=== PATIENT | female | born 1995 | race Caucasian/White ===

== ENCOUNTER → 2022-03-28 | Outpatient (CLI) ==
[~2022-03-28] MED LIST: CEPH-507 PO
== END ==
LOC: LABNPT 16:43
PROVIDERS: ATTEND Nurse Practitioner Women's Health
DX: Z34.02 Encounter for supervision of normal first pregnancy, second trimester (principal); Z3A.00 Weeks of gestation of pregnancy not specified
CPT/HCPCS: 82105

== ENCOUNTER → 2022-04-25 | Outpatient (CLI) | payer BC ==
--- NOTE | 2022-04-25 15:51 | Diagnostic Imaging Report ---
INDICATION: survey. TECHNIQUE: Multiple real-time grayscale images were obtained over the gravid uterus. COMPARISON: None. FINDINGS: There is a single live fetus in a breech presentation. heart rate was recorded at 153 BPM. Placenta is anterior and appears to be in a low-lying position. Amniotic fluid volume is normal. Cervical length is 4.4 cm. survey shows kidneys, bladder and stomach to be unremarkable. brain is unremarkable. There is a four-chamber heart. There is a three-vessel cord with normal insertion. spine is limited in evaluation. Biometrical measurements are as follows: Biparietal 5.01 cm, age 21 weeks 2 days. Head circumference 18.95 cm, age 21 weeks 2 days. Abdominal circumference 16.12 cm, age 21 weeks 2 days. Femur length 3.53 cm, age 21 weeks 2 days. Sonographic estimate age: 21 weeks 2 days. Sonographic estimated date of delivery: 09/03/2022. Estimated Weight: 406 gm (+/- 59 gm). LMP percentile: 39%. heart rate: 153 beats per minute. number: 1 of 1. IMPRESSION: Single live IUP of 21 weeks 2 days gestational age. Estimated date of confinement sonographically is 09/03/2022. The survey does show a low-lying anterior placenta. No gross abnormalities were visualized, although spine was somewhat limited in evaluation due to position. Follow-up in the later second or early third trimester could be performed. Dictated by: Dictated on workstation # [id number]
== END ==
LOC: RAD 14:30
PROVIDERS: ATTEND Nurse Practitioner Women's Health
DX: Z34.02 Encounter for supervision of normal first pregnancy, second trimester (principal); Z3A.21 21 weeks gestation of pregnancy
CPT/HCPCS: 76805

== ENCOUNTER 2022-08-31 02:08 | Inpatient (IN) | payer BC ==
[~2022-08-31] VITALS: Ht 168 cm; Wt 71.6 kg
[2022-08-31] VITALS (39 sets, daily range): BP systolic 90–123; BP diastolic 52–80
[2022-08-31 02:41] LABS: BILIRUBIN,URINE NEGATIVE (NEGATIVE); CLARITY,URINE CLEAR; COLOR,URINE YELLOW; GLUCOSE, URINE (UA) NEGATIVE (NEGATIVE); KETONES,URINE NEGATIVE (NEGATIVE); LEUKOCYTE ESTERASE ,URINE NEGATIVE (NEGATIVE); NITRITE,URINE NEGATIVE (NEGATIVE); PH,URINE 6.5 (5-9); PROTEIN,URINE NEGATIVE (NEGATIVE)
[2022-08-31 02:51] LABS: BACTERIA,URINE NEGATIVE /HPF; SQUAMOUS EPITHELIAL CELL,UR 0-2 /HPF
[2022-08-31] MEDS ORDERED: ACETAMINOPHEN 500 MG TAB (TYLENOL) PO ONE (04:30)
[2022-08-31] MEDS ORDERED: LIDOCAINE/EPI 2% 1:200,00 (XYLOCAINE) 10 ML VIAL INJ PRN (04:30)
[2022-08-31] MEDS ORDERED: ACETAMINOPHEN 500 MG TAB (TYLENOL) ONE (04:42)
[2022-08-31] MEDS: D5 LR IV SOLUTION 1,000 ML IV SCH ×2 (06:12→13:40)
[2022-08-31] MEDS: CATHETER FLUSH 10 ML SYR IV SCH ×2 (06:13→14:00)
[2022-08-31 06:14] LABS: BASOPHILS % (AUTO) 0 % (0-10); EOSINOPHILS # (AUTO) 0.2 10^3/uL (0.0-0.3); EOSINOPHILS % (AUTO) 2 % (0-10); HEMATOCRIT 34 % (35-52); HEMOGLOBIN 11.8 g/dL (11.5-16.0); LYMPHOCYTES # (AUTO) 1.9 10^3/uL (1.0-4.0); LYMPHOCYTES % (AUTO) 20 % (12-44); MEAN CORPUSCULAR HEMOGLOBIN 29 pg (25-34); MEAN CORPUSCULAR HGB CONC 34 g/dL (32-36); MEAN CORPUSCULAR VOLUME 86 fL (80-99); MEAN PLATELET VOLUME 11.4 fL (9.0-12.2); MONOCYTES # (AUTO) 0.8 10^3/uL (0.0-1.0); MONOCYTES % (AUTO) 8 % (0-12); NEUTROPHILS # (AUTO) 6.5 10^3/uL (1.8-7.8); NEUTROPHILS % (AUTO) 69 % (42-75); PLATELET COUNT 155 10^3/uL (130-400); WHITE BLOOD COUNT 9.4 10^3/uL (4.3-11.0)
[2022-08-31] MEDS ORDERED: OXYTOCIN PRE-MIX DRIP 500 ML IV ONE (08:14)
[2022-08-31] MEDS ORDERED: fentaNYL 2 mcg/ml BUPIVA 0.125 100 ML ONE (08:15)
--- NOTE | 2022-08-31 08:35 | History & Physical-OB ---
OB - Chief Complaint & HPI Date/Time Date of Admission: Date of Admission: Aug 31, 2022 at 04:18 Date seen by a Provider: Aug 31, 2022 Time Seen by a Provider: 08:00 Chief Complaint/History OB-Reason for Admission/Chief: Onset of Labor Hx : 2 Hx Para: 1 Expected Date of Delivery: Sep 03, 2022 Gestational Age in Weeks: 39 Gestational Age in Days: 4 Admission Nurse Assessment Rev: Yes History of Labs See PN records, GBS neg Allergies and Home Medications Allergies Coded Allergies: No Known Drug Allergies (Unverified , 03/29/22) Patient Home Medication List Home Medication List Reviewed: Yes Discontinued Medications Cephalexin (Keflex) 500 Mg Capsule, 500 MG PO BID Discontinued Reason: No Longer Taking Prescribed by: RAMESH PORTILLO on 06/09/191802 Last Action: Discontinued OB - History Hx of Present Care: Yes Ultrasounds: Normal mid trimester US Obstetrical Complications: None Medical Complications: None Obstetrical History Hx : 2 Hx Para: 1 Patient Past Medical History n/a Social History/Family History Alcohol Use: Denies Use Recreational Drug Use: No 2nd Hand Smoke Exposure: No Immunizations Influenza Vaccine Up-to-Date: No; Not Current COVID19 Vaccine Barrel Inspector: Moderna Hepatitis A: Yes Hepatitis B: Yes OB - Admission Exam Physical Exam Vitals: Vital Signs 08/31/22 08/31/22 06:13 07:30 Temp 36.4 Pulse 85 Resp 18 B/P (MAP) 114/76 (89) Pulse Ox 99 O2 Delivery Room Air HEENT: NCAT Heart: Rhythm Normal Lungs: Clear Abdomen: Gravid Extremities: Normal Reflexes: Normal Cervical Dilatation: 6cm Effacement: 75% Station: -1 Membranes: Intact Heart Rate: 130's Accelerations: Accelerations Present Decelerations: No Decelerations Short Term Variability: Present Halfway Variability: Average (6-25) Contractions on Admission: 6-10 Minutes Apart Intensity: Firm Labs Laboratory Tests Test 08/31/22 02:13 08/31/22 06:08 Range/Units Urine Color YELLOW Urine Clarity CLEAR Urine pH 6.5 5-9 Urine Specific Roberts 1.025 H 1.016-1.022 Urine Protein NEGATIVE NEGATIVE Urine Glucose (UA) NEGATIVE NEGATIVE Urine Ketones NEGATIVE NEGATIVE Urine Nitrite NEGATIVE NEGATIVE Urine Bilirubin NEGATIVE NEGATIVE Urine Urobilinogen 0.2 < = 1.0 MG/DL Urine Leukocyte Esterase NEGATIVE NEGATIVE Urine RBC (Auto) NEGATIVE NEGATIVE Urine RBC NONE /HPF Urine WBC NONE /HPF Urine Squamous Epithelial Cells 0-2 /HPF Urine Crystals NONE /LPF Urine Bacteria NEGATIVE /HPF Urine Casts NONE /LPF Urine Mucus SMALL H /LPF Urine Culture Indicated NO White Blood Count 9.4 4.3-11.0 10^3/uL Red Blood Count 4.02 3.80-5.11 10^6/uL Hemoglobin 11.8 11.5-16.0 g/dL Hematocrit 34 L 35-52 % Mean Corpuscular Volume 86 80-99 fL Mean Corpuscular Hemoglobin 29 25-34 pg Mean Corpuscular Hemoglobin Concent 34 32-36 g/dL Red Cell Distribution Width 15.9 H 10.0-14.5 % Platelet Count 155 130-400 10^3/uL Mean Platelet Volume 11.4 9.0-12.2 fL Immature Granulocyte % (Auto) 0 % Neutrophils (%) (Auto) 69 42-75 % Lymphocytes (%) (Auto) 20 12-44 % Monocytes (%) (Auto) 8 0-12 % Eosinophils (%) (Auto) 2 0-10 % Basophils (%) (Auto) 0 0-10 % Neutrophils # (Auto) 6.5 1.8-7.8 10^3/uL Lymphocytes # (Auto) 1.9 1.0-4.0 10^3/uL Monocytes # (Auto) 0.8 0.0-1.0 10^3/uL Eosinophils # (Auto) 0.2 0.0-0.3 10^3/uL Basophils # (Auto) 0.0 0.0-0.1 10^3/uL Immature Granulocyte # (Auto) 0.0 0.0-0.1 10^3/uL OB - Assessment/Plan/Diagnosis Assessment Assessment: active labor Admission Dx 27 yo @ 39 weeks Active labor GBS neg Admission Status: Inpatient Order (span 2 midnights) Reason for Inpatient Admission: Active labor at 39 weeks Plan Plan: Expectant Management JUAN CARRIZALES DO Aug 31, 2022 08:35
[2022-08-31] MEDS ORDERED: METOCLOPRAMIDE INJ 10 MG/2 ML (REGLAN) IV PRN (09:15)
[2022-08-31] MEDS ORDERED: LACTATED RINGERS 1,000 ML IV SCH (09:15)
[2022-08-31] MEDS ORDERED: diphenhydrAMINE 50 MG/ML INJ (BENADRYL) IV PRN (09:15)
[2022-08-31] MEDS ORDERED: ONDANSETRON 4 MG/2 ML (SDV) Z0FRAN IV PRN (09:15)
[2022-08-31] MEDS ORDERED: NALOXONE 0.4 MG/ML 1 ML (NARCAN) VIAL IV PRN ×3 (09:15→14:15)
[2022-08-31] MEDS ORDERED: fentaNYL 2 mcg/ml BUPIVA 0.125 100 ML EPI SCH (09:15)
[2022-08-31] MEDS ORDERED: OXYTOCIN PRE-MIX DRIP 500 ML IV SCH (11:45)
[2022-08-31] MEDS: OXYTOCIN PRE-MIX DRIP 500 ML IV SCH ×2 (14:01→14:32)
[2022-08-31] MEDS ORDERED: BENZOCAINE/MENTHOL (DERMOPLAST) 56 ML CAN TP PRN (14:15)
[2022-08-31] MEDS ORDERED: WITCH HAZEL(TUCKS) 40 EA JAR TOP PRN (14:15)
[2022-08-31] MEDS ORDERED: DIBUCAINE 1% OINTMENT 30 GM TUBE TOP PRN (14:15)
[2022-08-31] MEDS ORDERED: TETANUS,DIPTH,PERTUSS P/F (BOOSTRIX) 0.5 ML VIAL IM ONE (14:15)
[2022-08-31] MEDS ORDERED: MEASLES,MUMPS,RUBELLA 1 EA INJ SQ ONE (14:15)
--- NOTE | 2022-08-31 14:18 | OB Labor & Delivery Record ---
L&D History Date of Service Date of Service: Aug 31, 2022 History Expected Date of Delivery: Sep 03, 2022 Gestational Age in Weeks: 39 Hx : 2 Hx Para: 1 Complications Events: Routine care Operative Indications (Cesarea: N/A-Vaginal Delivery Intrapartal Events: None L&D Stage1 Stage One Onset of Labor - Date: Aug 31, 2022 Monitors and Tracing Monitor Mode: External Heart Rate: 125 Monitor Accelerations: Uniform Monitor Decelerations: None Station: -1 Psychiatric Nurse Practitioner Variability: Average (6-10) Short Term Variability: Present Presentation: Vertex Vital Signs VS - Last 72 Hours, by Label 08/31/22 08/31/22 08/31/22 08/31/22 02:23 02:38 06:13 07:30 Temp 36.3 36.3 36.3 36.4 Pulse 75 75 67 85 Resp 18 18 20 18 B/P (MAP) 113/78 (90) 114/76 (89) Pulse Ox 99 99 99 O2 Delivery Room Air Room Air Room Air Room Air 08/31/22 08/31/22 08/31/22 08/31/22 08:43 08:48 08:51 08:54 Pulse 79 86 79 88 Resp 18 18 18 18 B/P (MAP) 121/75 (90) 123/78 (93) 122/79 (93) 117/72 (87) Pulse Ox 100 100 100 100 O2 Delivery Room Air Room Air Room Air Room Air 08/31/22 08/31/22 08/31/22 08/31/22 08:57 09:00 09:03 09:06 Pulse 85 88 86 88 Resp 16 18 18 18 B/P (MAP) 116/76 (89) 113/64 (80) 114/64 (81) 110/64 (79) Pulse Ox 100 100 100 99 O2 Delivery Room Air Room Air Room Air Room Air 08/31/22 08/31/22 08/31/22 08/31/22 09:15 09:20 09:25 09:30 Temp 36.6 Pulse 67 86 89 63 Resp 18 18 18 16 B/P (MAP) 116/65 (82) 106/59 (75) 110/66 (81) 110/58 (75) Pulse Ox 97 97 97 98 O2 Delivery Room Air Room Air Room Air Room Air 08/31/22 08/31/22 08/31/22 08/31/22 09:45 10:00 10:15 10:30 Temp 36.5 Pulse 98 82 78 69 Resp 16 16 18 16 B/P (MAP) 94/54 (67) 97/56 (70) 97/57 (70) 93/54 (67) Pulse Ox 98 98 99 98 O2 Delivery Room Air Room Air Room Air Room Air 08/31/22 08/31/22 08/31/22 08/31/22 10:45 11:15 11:30 11:45 Pulse 75 68 68 56 Resp 16 18 18 18 B/P (MAP) 103/63 (76) 107/58 (74) 91/55 (67) 107/68 (81) Pulse Ox 97 98 98 O2 Delivery Room Air Room Air Room Air Room Air 08/31/22 08/31/22 08/31/22 08/31/22 12:00 12:15 12:30 12:45 Temp 36.6 Pulse 75 68 62 58 Resp 18 20 18 18 B/P (MAP) 104/67 (79) 106/74 (85) 105/68 (80) 110/68 (82) O2 Delivery Room Air Room Air Room Air Room Air 08/31/22 08/31/22 13:00 13:15 Pulse 61 62 Resp 16 16 B/P (MAP) 106/68 (81) 90/60 (70) O2 Delivery Room Air Room Air Rupture of Membranes Spontaneous Ruture of Membrane: No Amniotic Membrane Rupture Time: 0805 Amniotic Membrane Fluid Desc.: Clear Vaginal Bleeding Description: Normal Show Induction/Anesthesia Epidural Cath Placement - Time: 0849 Progress/Notes Patient admitted in active labor, GBS neg. Arom performed after admission, alisa ent had epidural placed and low dose pitocin advanced labor to complete and + 2 station L&D Stage2 Stage Two Stage II Date: Aug 31, 2022 Monitors and Tracing Monitor Mode: External Heart Rate: 125 Monitor Accelerations: Uniform Monitor Decelerations: None Psychiatric Nurse Practitioner Variability: Average (6-10) Short Term Variability: Present Position: Right Occiput Anterior Presentation: Vertex Cord Descript/Complications Cord Vessel Description: 3 Vessels Delivery Type Delivery Method: Spontaneous Vaginal Anterior Shoulder: Left, Right Episiotomy/Perineal Laceration Laceraction(s)/Extensions: Yes Episiotomy Description: Periurethral Extnsion/lac, 1st degree Degree (describe repair) laceration repaired using 3-0 rapide in usual fashion Condition of Infant Delivery 1 minute Comment: 9 5 minute Comment: 9 Notes Live male infant weight pending Condition of Infant Condition of : Living Exam: No Observed Abnormalities Resuscitation Resuscitation: N/A - Spontaneous Resp L&D Stage3 Stage Three Stage III Date: Aug 31, 2022 Pictocin Pitocin Administration mu/min: 4 Pitocin ml/hr: 4 Pitocin Administration Comment: pitocin started 30 mu wide open after delivery of placenta Placenta Delivery Placenta Delivery: Spontaneous Delivery Summary Summary Estimated blood loss (mL): 300 Attending at delivery: Juan Carrizales DO Condition of Delivery Examined: Cervix Examined, Uterus Explored Post Hemorrhage: No Condition of Mother stable Condition of Infant (s) stable JUAN CARRIZALES DO Aug 31, 2022 14:18
--- NOTE | 2022-08-31 14:19 | Discharge Inst-Women's Service ---
Discharge Inst-Women's Serv Depart Medication/Instructions New, Converted or Re-Newed RX: Transmitted to Pharmacy Final Diagnosis PPD 1 NVD Problems Reviewed?: Yes Consults/Follow Up Additional Follow Up: Yes Orders/Referrals Dr. Carrizales in 6 weeks Activity Activity: Activity as Tolerated Driving Instructions: No Driving for 1 Week NO SMOKING: NO SMOKING Nothing Inside Vagina: No Douching, No Belding, No Tampons Diet Discharge Diet: No Restrictions Symptoms to Report to : Bleeding Excessive, Pain Increased, Fever Over 101 Degrees F, Vaginal Bleeding Increase, Questions/Concerns For Any Problems or Questions: Contact Your Physician JUAN CARRIZALES DO Aug 31, 2022 14:19
[2022-08-31] MEDS ORDERED: BENZ78AE5 TP (14:22)
[2022-08-31] MEDS ORDERED: DIBU30OI TOP (14:22)
[2022-08-31] MEDS ORDERED: DOCU100C37 PO (14:22)
[2022-08-31] MEDS ORDERED: IBUP-844 PO (14:22)
[2022-08-31] MEDS ORDERED: ACET-93 PO (14:22)
[2022-08-31] MEDS: IBUPROFEN 600 MG (MOTRIN) TAB PO SCH ×2 (14:28→20:18)
[2022-08-31] MEDS: ACETAMINOPHEN 500 MG TAB (TYLENOL) PO SCH (14:28)
[2022-08-31] MEDS: DOCUSATE SODIUM 100 MG (COLACE) CAP PO SCH (20:18)
[2022-08-31] MEDS ORDERED: CATHETER FLUSH 10 ML SYR IV SCH (22:00)
[2022-09-01 00:10] VITALS: BP 101/64
[2022-09-01] MEDS: ACETAMINOPHEN 500 MG TAB (TYLENOL) PO SCH ×3 (00:11→16:00)
[2022-09-01 04:10] VITALS: BP 115/83
[2022-09-01] MEDS: IBUPROFEN 600 MG (MOTRIN) TAB PO SCH ×3 (04:11→16:00)
[2022-09-01 05:15] LABS: BASOPHILS % (AUTO) 0 % (0-10); MONOCYTES # (AUTO) 0.7 10^3/uL (0.0-1.0)
[2022-09-01 05:17] LABS: EOSINOPHILS # (AUTO) 0.2 10^3/uL (0.0-0.3); EOSINOPHILS % (AUTO) 2 % (0-10); HEMATOCRIT 33 % (35-52); LYMPHOCYTES # (AUTO) 2.1 10^3/uL (1.0-4.0); LYMPHOCYTES % (AUTO) 20 % (12-44); MEAN CORPUSCULAR HEMOGLOBIN 29 pg (25-34); MEAN CORPUSCULAR HGB CONC 34 g/dL (32-36); MEAN CORPUSCULAR VOLUME 87 fL (80-99); MEAN PLATELET VOLUME 11.4 fL (9.0-12.2); MONOCYTES % (AUTO) 6 % (0-12); NEUTROPHILS # (AUTO) 7.7 10^3/uL (1.8-7.8); NEUTROPHILS % (AUTO) 72 % (42-75); PLATELET COUNT 128 10^3/uL (130-400); WHITE BLOOD COUNT 10.8 10^3/uL (4.3-11.0)
[2022-09-01] MEDS ORDERED: PRENATAL VITAMIN 1 EA TAB PO SCH (07:00)
[2022-09-01] MEDS: DOCUSATE SODIUM 100 MG (COLACE) CAP PO SCH (08:19)
[2022-09-01 08:20] VITALS: BP 110/71
[2022-09-01] MEDS ORDERED: FERROUS SULF 325 MG (IRON) TAB PO SCH (09:00)
[2022-09-01 11:30] VITALS: BP 106/56
--- NOTE | 2022-09-01 11:37 | Postpartum Progress Note ---
Note Note Day # 1 Subjective: Patient is without complaints. Ambulating, voiding. Tolerating a regular diet without nausea or vomiting. Normal lochia. Pain is well controlled with oral pain medications. Objective: Physical Exam: General - Alert and oriented, no apparent distress Abdomen - Soft, appropriately tender to palpation, non-distended, fundus firm at umbilicus Extremities - no edema, negative Janneth's bilaterally Assessment: PPD 1 NVD Acute blood loss anemia Plan: Routine care. Encourage breast feeding. Encourage ambulation. Ferrous sulfate supplementation. Plan for discharge today Vitals - Labs Vital Signs - I&O Vital Signs Date Time Temp Pulse Resp B/P (MAP) Pulse Ox O2 Delivery O2 Flow Rate FiO2 09/01/22 08:20 36.6 72 16 110/71 (84) 98 Room Air 09/01/22 04:10 36.7 62 16 115/83 (94) 99 Room Air 09/01/22 00:10 36.4 82 16 101/64 (76) 98 Room Air 08/31/22 20:15 36.0 79 16 93/52 (66) 96 Room Air 08/31/22 16:17 62 16 107/70 (82) Room Air 08/31/22 15:47 58 16 101/60 (74) Room Air 08/31/22 15:17 55 16 99/59 (72) Room Air 08/31/22 14:47 62 16 116/76 (89) Room Air 08/31/22 14:32 71 18 104/67 (79) Room Air 08/31/22 14:17 60 18 104/62 (76) Room Air 08/31/22 14:03 36.6 88 18 113/71 (85) Room Air 08/31/22 13:30 57 18 92/56 (68) Room Air 08/31/22 13:15 62 16 90/60 (70) Room Air 08/31/22 13:00 61 16 106/68 (81) Room Air 08/31/22 12:45 58 18 110/68 (82) Room Air 08/31/22 12:30 62 18 105/68 (80) Room Air 08/31/22 12:15 68 20 106/74 (85) Room Air 08/31/22 12:00 36.6 75 18 104/67 (79) Room Air 08/31/22 11:45 56 18 107/68 (81) Room Air I & O 09/01/22 07:00 Intake Total 2500 ml Balance 2500 ml Labs Laboratory Tests 09/01/22 05:01: White Blood Count 10.8, Red Blood Count 3.75L, Hemoglobin 11.0L, Hematocrit 33L, Mean Corpuscular Volume 87, Mean Corpuscular Hemoglobin 29, Mean Corpuscular Hemoglobin Concent 34, Red Cell Distribution Width 16.1H, Platelet Count 128L, Mean Platelet Volume 11.4, Immature Granulocyte % (Auto) 0, Neutrophils (%) (Auto) 72, Lymphocytes (%) (Auto) 20, Monocytes (%) (Auto) 6, Eosinophils (%) (Auto) 2, Basophils (%) (Auto) 0, Neutrophils # (Auto) 7.7, Lymphocytes # (Auto) 2.1, Monocytes # (Auto) 0.7, Eosinophils # (Auto) 0.2, Basophils # (Auto) 0.0, Immature Granulocyte # (Auto) 0.0, Percent Immature Platelet Fraction 7.7H JUAN CARRIZALES DO Sep 01, 2022 11:37
--- NOTE | 2022-09-01 12:06 | Anesthesia-Regional Post-Op ---
Regional Patient Condition Mental Status: Alert, Oriented x3 Circulation: Same as Pre-Op Headache: Absent Sensation: Full Recovery Motor Block: Absent Post Op Complications Complications None Follow Up Care/Instructions Patient Instructions None needed. Anesthesia/Patient Condition Patient is doing well, no complaints, stable vital signs, no apparent adverse anesthesia problems. No complications reported per nursing. BABATUNDE PEARSON CRNA Sep 01, 2022 12:06
== END 2022-09-01 16:25 | disposition home or self-care (01) | DRG 806 ==
LOC: LDRP 02:08 → WSo 02:08 → LDRP 04:18
PROVIDERS: ADMIT Obstetrics & Gynecology; ATTEND Obstetrics & Gynecology
PROC: 10E0XZZ Delivery of Products of Conception, External Approach (ICD-10-PCS; principal; 2022-08-31)
PROC: 0UQMXZZ Repair Vulva, External Approach (ICD-10-PCS; 2022-08-31)
DX: O71.82 Other specified trauma to perineum and vulva (principal); D62 Acute posthemorrhagic anemia; Z37.0 Single live birth; O90.81 Anemia of the puerperium; Z3A.39 39 weeks gestation of pregnancy
CPT/HCPCS: 36415; 81000; 85025; 86850; 86900; 86901; 99212